=== PATIENT | female | born 1945 | race Caucasian/White ===

== ENCOUNTER → 2018-05-27 | Outpatient (CLI) | payer MEDICARE | END | disposition home or self-care (01) | LOC: CFH 12:32 | PROVIDERS: ATTEND Internal Medicine Cardiovascular Disease | DX: I72.8 Aneurysm of other specified arteries (principal); I10 Essential (primary) hypertension | CPT/HCPCS: 93306 ==

== ENCOUNTER 2018-08-25 14:54 | Inpatient (IN) | payer MEDICARE ==
[~2018-08-25] VITALS: Ht 160 cm; Wt 32.1 kg
[2018-08-25] MEDS ORDERED: PLEASE ENTER HEIGHT AND WEIGHT MC SCH (15:30)
[2018-08-25] MEDS ORDERED: SODIUM CHLORIDE FLUSH 10ML SYR IVF ONE (15:30)
[2018-08-25 15:57] LABS: BASOPHILS # (AUTO) 0.03 x10^3/uL (0-0.1); BASOPHILS % (AUTO) 0 % (0-1); EOSINOPHILS # (AUTO) 0.02 x10^3/uL (0-0.4); EOSINOPHILS % (AUTO) 0 % (1-7); LYMPHOCYTES # (AUTO) 0.81 x10^3/uL (1-3.4); LYMPHOCYTES % (AUTO) 6 % (22-44); MD NO; MEAN CORPUSCULAR HEMOGLOBIN 31.4 pg (27.0-34.8); MEAN CORPUSCULAR HGB CONC 33.2 g/dL (32.4-35.8); MEAN CORPUSCULAR VOLUME 94.5 fL (80-100); MEAN PLATELET VOLUME 7.7 fL (7.4-10.4); MONOCYTES # (AUTO) 1.36 x10^3/uL (0.2-0.8); MONOCYTES % (AUTO) 10 % (2-9); NEUTROPHILS # (AUTO) 11.56 x10^3/uL (1.8-6.8); NEUTROPHILS % (AUTO) 84 % (42-75); PLATELET COUNT 367 x10^3/uL (130-400); RED BLOOD COUNT 4.88 x10^6/uL (3.82-5.3); RED CELL DISTRIBUTION WIDTH 12.8 % (9.6-15.2)
[2018-08-25] MEDS ORDERED: AZITHROMYCIN 500 MG in SODIUM CHLORIDE 0.9% 250 ML IVPB ONE (16:00)
[2018-08-25] MEDS ORDERED: methylPREDNISolone SOD SUCC 125 MG/2 ML IVP ONE (16:00)
[2018-08-25] MEDS ORDERED: CEFTRIAXONE 1,000 MG in SODIUM CHLORIDE 0.9% 50 ML IVPB ONE (16:00)
[2018-08-25 16:06] LABS: ALANINE AMINOTRANSFERASE 69 U/L (12-78); ALBUMIN 3.6 g/dL (3.4-5.0); ANION GAP 6 mmol/L (5-15); CALCIUM 9.8 mg/dL (8.5-10.1); CHLORIDE 101 mmol/L (98-107); CREATININE 0.61 mg/dL (0.55-1.02)
[2018-08-25 16:10] LABS: ALKALINE PHOSPHATASE 88 U/L (45-117); BILIRUBIN,TOTAL 0.6 mg/dL (0.2-1.0); TOTAL PROTEIN 7.7 g/dL (6.4-8.2); TROPONIN I < 0.015 ng/mL (0.000-0.045)
[2018-08-25] MEDS ORDERED: ALBUTEROL/IPRATROPIUM 2.5MG/0.5MG, 3 ML ONE ×2 (16:10)
[2018-08-25] MEDS: ALBUTEROL/IPRATROPIUM 2.5MG/0.5MG, 3 ML NPPB SCH ×4 (16:22→22:25)
[2018-08-25] MEDS ORDERED: methylPREDNISolone SOD SUCC 125 MG/2 ML ONE (16:30)
[2018-08-25] MEDS ORDERED: ALBUTEROL/IPRATROPIUM 2.5MG/0.5MG, 3 ML NPPB PRN (16:30)
[2018-08-25] MEDS ORDERED: CEFTRIAXONE PMX 1GM/50ML 50 ML ONE (16:30)
[2018-08-25] MEDS ORDERED: FLUT1DIS5 IH (16:39)
[2018-08-25] MEDS ORDERED: RANI150C PO (16:40)
[2018-08-25] MEDS ORDERED: TIOT18CA INH (16:40)
[2018-08-25] MEDS ORDERED: PARO20TA4 PO (16:41)
[2018-08-25] MEDS ORDERED: DIGO125T PO (16:41)
[2018-08-25] MEDS ORDERED: APIX2.5T PO (16:42)
[2018-08-25] MEDS ORDERED: DILT360C26 PO (16:42)
[2018-08-25] MEDS ORDERED: ALBU0.63 NEB (16:43)
[2018-08-25] MEDS ORDERED: ROFL500T PO (16:44)
[2018-08-25] MEDS ORDERED: ACETAMINOPHEN 325 MG TABLET PO PRN (17:00)
[2018-08-25] MEDS ORDERED: POLYETHYLENE GLYCOL 17 GM PACKET PO PRN (17:00)
[2018-08-25] MEDS: methylPREDNISolone SOD SUCC 125 MG/2 ML IVPush SCH ×2 (17:00→23:00)
[2018-08-25] MEDS ORDERED: ONDANSETRON 2MG/ML, 2ML IVPush PRN (17:00)
[2018-08-25] MEDS ORDERED: LIDODERM 5% PATCH TD PRN (17:00)
[2018-08-25] MEDS ORDERED: GUAIFENESIN/COD200MG-20MG/10ML LIQUID PO PRN (17:00)
[2018-08-25] MEDS ORDERED: ONDANSETRON ODT 4 MG PO PRN (17:00)
[2018-08-25] MEDS ORDERED: hydrALAzine 20 MG/ML, 1ML IVPush PRN (17:00)
[2018-08-25] MEDS ORDERED: BISACODYL 10 MG SUPP PR PRN (17:00)
[2018-08-25] MEDS ORDERED: DOCUSATE 100 MG CAPSULE PO PRN (17:00)
[2018-08-25] MEDS ORDERED: ALBUTEROL SULFATE 2.5 MG/3 ML NEB PRN (17:00)
[2018-08-25 17:29] LABS: FREE T4 (FREE THYROXINE) 1.18 ng/dL (0.76-1.46); THYROID STIMULATING HORMONE 0.125 mIU/L (0.358-3.740)
--- NOTE | 2018-08-25 18:05 | NUR ---
PT RESTING WITH NO COMPLAINTS. VS UPDATED AND STABLE. AWAITING HOSPITAL ROOM.
--- NOTE | 2018-08-25 18:25 | NUR ---
[facility] TELEPHONE HAND-OFF REPORT GIVEN TO FARHAT ALDANA. PATIENT READY TO GO TO HOSPITAL ROOM.
[2018-08-25 19:30] VITALS: BP 169/72
[2018-08-25] MEDS ORDERED: FLUTICASONE IH SCH (21:00)
[2018-08-25] MEDS ORDERED: SALMETEROL IH SCH (21:00)
[2018-08-25] MEDS: APIXABAN 2.5 MG TABLET PO SCH (22:59)
[2018-08-25] MEDS: LEVOFLOXACIN/PMX 750MG/150ML 150 ML IV SCH (22:59)
[2018-08-25] MEDS: SODIUM CHLORIDE 0.9% 1,000 ML IV SCH (22:59)
[2018-08-25] MEDS: DIGOXIN 0.125 MG TABLET PO SCH (23:00)
[2018-08-25] MEDS: PAROXETINE 20 MG TABLET PO SCH (23:00)
[2018-08-25] MEDS: BUDESONIDE 0.5 MG/2 ML INHA NPPB SCH (23:01)
[2018-08-25] MEDS ORDERED: ALBUTEROL SULFATE 2.5 MG/3 ML NPPB PRN (23:30)
[2018-08-26 00:15] VITALS: BP 102/50
[2018-08-26] MEDS: methylPREDNISolone SOD SUCC 125 MG/2 ML IVPush SCH ×4 (05:52→23:15)
[2018-08-26 06:02] LABS: CHLORIDE 103 mmol/L (98-107)
[2018-08-26 06:06] LABS: MEAN CORPUSCULAR HEMOGLOBIN 31.8 pg (27.0-34.8); MEAN CORPUSCULAR HGB CONC 33.4 g/dL (32.4-35.8); MEAN CORPUSCULAR VOLUME 95.1 fL (80-100); MEAN PLATELET VOLUME 7.5 fL (7.4-10.4); PLATELET COUNT 328 x10^3/uL (130-400); RED BLOOD COUNT 4.25 x10^6/uL (3.82-5.3); RED CELL DISTRIBUTION WIDTH 12.7 % (9.6-15.2)
[2018-08-26 06:07] LABS: CALCIUM 9.1 mg/dL (8.5-10.1); CREATININE 0.55 mg/dL (0.55-1.02)
[2018-08-26 06:22] LABS: BASOPHILS % (AUTO) 0 % (0-1); EOSINOPHILS % (AUTO) 0 % (1-7); LYMPHOCYTES # (AUTO) 0.17 x10^3/uL (1-3.4); LYMPHOCYTES % (AUTO) 2 % (22-44); MD SCAN; MONOCYTES # (AUTO) 0.07 x10^3/uL (0.2-0.8); MONOCYTES % (AUTO) 1 % (2-9); NEUTROPHILS # (AUTO) 9.93 x10^3/uL (1.8-6.8); NEUTROPHILS % (AUTO) 98 % (42-75)
[2018-08-26] MEDS ORDERED: IPRATROPIUM 0.5 MG/2.5 ML INHA NPPB SCH (07:00)
[2018-08-26 07:13] LABS: ANION GAP 8 mmol/L (5-15)
[2018-08-26] MEDS: BUDESONIDE 0.5 MG/2 ML INHA NPPB SCH ×2 (07:52→20:54)
[2018-08-26] MEDS: DILTIAZEM CD 180 MG CAP.ER.24H PO SCH (08:10)
[2018-08-26] MEDS: PANTOPROZOLE 40MG TABLET PO SCH (08:10)
[2018-08-26] MEDS: APIXABAN 2.5 MG TABLET PO SCH ×2 (08:10→20:49)
[2018-08-26 08:30] VITALS: BP 132/76
[2018-08-26 13:28] LABS: MEAN CORPUSCULAR HEMOGLOBIN 31.5 pg (27.0-34.8); MEAN CORPUSCULAR HGB CONC 33.4 g/dL (32.4-35.8); MEAN CORPUSCULAR VOLUME 94.5 fL (80-100); MEAN PLATELET VOLUME 7.4 fL (7.4-10.4); PLATELET COUNT 363 x10^3/uL (130-400); RED BLOOD COUNT 4.45 x10^6/uL (3.82-5.3); RED CELL DISTRIBUTION WIDTH 12.8 % (9.6-15.2)
[2018-08-26 13:45] VITALS: BP 132/66
[2018-08-26 13:45] LABS: BASOPHILS # (AUTO) 0.02 x10^3/uL (0-0.1); BASOPHILS % (AUTO) 0 % (0-1); EOSINOPHILS % (AUTO) 0 % (1-7); LYMPHOCYTES # (AUTO) 0.22 x10^3/uL (1-3.4); LYMPHOCYTES % (AUTO) 2 % (22-44); MD SCAN; MONOCYTES # (AUTO) 0.23 x10^3/uL (0.2-0.8); MONOCYTES % (AUTO) 2 % (2-9); NEUTROPHILS # (AUTO) 11.69 x10^3/uL (1.8-6.8); NEUTROPHILS % (AUTO) 96 % (42-75)
[2018-08-26] MEDS: SODIUM CHLORIDE 0.9% 1,000 ML IV SCH (13:54)
[2018-08-26 18:50] VITALS: BP 141/65
[2018-08-26] MEDS: DIGOXIN 0.125 MG TABLET PO SCH (20:49)
[2018-08-26] MEDS: PAROXETINE 20 MG TABLET PO SCH (20:49)
[2018-08-26] MEDS: IPRATROPIUM 0.5 MG/2.5 ML INHA NPPB SCH (20:54)
[2018-08-26] MEDS: LEVOFLOXACIN/PMX 750MG/150ML 150 ML IV SCH (23:15)
[2018-08-27 00:36] VITALS: BP 120/67
[2018-08-27] MEDS: methylPREDNISolone SOD SUCC 125 MG/2 ML IVPush SCH ×3 (05:52→17:00)
[2018-08-27] MEDS: SODIUM CHLORIDE 0.9% 1,000 ML IV SCH (05:52)
[2018-08-27 06:24] LABS: ANION GAP 6 mmol/L (5-15); CALCIUM 8.6 mg/dL (8.5-10.1); CHLORIDE 107 mmol/L (98-107)
[2018-08-27 06:27] LABS: CREATININE 0.46 mg/dL (0.55-1.02)
[2018-08-27 07:10] VITALS: BP 123/72
[2018-08-27] MEDS: IPRATROPIUM 0.5 MG/2.5 ML INHA NPPB SCH (08:01)
[2018-08-27] MEDS: BUDESONIDE 0.5 MG/2 ML INHA NPPB SCH (08:02)
[2018-08-27] MEDS: APIXABAN 2.5 MG TABLET PO SCH (09:00)
[2018-08-27] MEDS: DILTIAZEM CD 180 MG CAP.ER.24H PO SCH (09:00)
[2018-08-27] MEDS: PANTOPROZOLE 40MG TABLET PO SCH (09:00)
[2018-08-27 12:45] VITALS: BP 145/66
[2018-08-27] MEDS ORDERED: LEVO750T26 PO (16:27)
[2018-08-27] MEDS ORDERED: METH4TAB2 PO (16:27)
== END 2018-08-27 17:15 | disposition home or self-care (01) | DRG 871 ==
LOC: ED 16:03 → EDIP 16:51 → 4EST 18:46 → DCLOUNGE 08-27 17:05
PROVIDERS: ADMIT Internal Medicine; ATTEND Internal Medicine
DX: A41.9 Sepsis, unspecified organism (principal); J15.9 Unspecified bacterial pneumonia; J44.1 Chronic obstructive pulmonary disease with (acute) exacerbation; J44.0 Chronic obstructive pulmonary disease with (acute) lower respiratory infection; I10 Essential (primary) hypertension; I48.91 Unspecified atrial fibrillation; R09.02 Hypoxemia; Z87.891 Personal history of nicotine dependence; Z99.81 Dependence on supplemental oxygen; Z91.030 Bee allergy status; F32.9 Major depressive disorder, single episode, unspecified; I27.20 Pulmonary hypertension, unspecified
CPT/HCPCS: 36415; 71045; 80048; 80053; 83605; 83735; 83880; 84100; 84439; 84443; 84484; 85025; 87040; 93005; 93306; 94640; 96365; 96367; 96375; 99285; G0378; J0456; J0696; J1956; J7620; J7626; J7644; J2930; J7030; J7050

== ENCOUNTER 2020-06-14 10:48 | Day surgery (SDC) | payer MEDICARE ==
[~2020-06-14] VITALS: Ht 160 cm; Wt 37.2 kg
[~2020-06-14 10:48] MED LIST: ALBU0.63 NEB; APIX2.5T PO; DIGO125T85 PO; DILT360C26 PO; FLUT1DIS5 IH; LEVO750T26 PO; METH4TAB2 PO; PARO20TA4 PO; RANI150C PO; ROFL500T PO; TIOT18CA INH
[2020-06-14] MEDS ORDERED: LIDOCAINE 2%, 20ML ONE (11:34)
== END 2020-06-14 12:23 | disposition home or self-care (01) ==
LOC: CACL 10:48
PROVIDERS: ATTEND Internal Medicine Cardiovascular Disease
DX: Z45.09 Encounter for adjustment and management of other cardiac device (principal); I48.0 Paroxysmal atrial fibrillation; J44.9 Chronic obstructive pulmonary disease, unspecified; Z79.01 Long term (current) use of anticoagulants; Z79.891 Long term (current) use of opiate analgesic; Z79.899 Other long term (current) drug therapy; Z91.030 Bee allergy status; Z99.81 Dependence on supplemental oxygen
CPT/HCPCS: 33286